=== PATIENT | female | born 1960 | race Caucasian/White ===

== ENCOUNTER → 2017-05-05 | Outpatient (CLI) | payer OTHER | END | disposition home or self-care (01) | LOC: CFH 10:19 | PROVIDERS: ATTEND Internal Medicine | DX: Z12.31 Encounter for screening mammogram for malignant neoplasm of breast (principal) | CPT/HCPCS: G0202 ==

== ENCOUNTER → 2020-11-22 | Outpatient (CLI) | payer OTHER | END | disposition home or self-care (01) | LOC: CFH 08:01 | PROVIDERS: ATTEND Internal Medicine | DX: Z12.31 Encounter for screening mammogram for malignant neoplasm of breast (principal) | CPT/HCPCS: 77063; 77067 ==

== ENCOUNTER → 2020-12-17 | Outpatient (CLI) | payer OTHER | END | disposition home or self-care (01) | LOC: CFH 10:32 | PROVIDERS: ATTEND Internal Medicine | DX: E78.00 Pure hypercholesterolemia, unspecified (principal); E78.41 Elevated Lipoprotein(a); Z82.49 Family history of ischemic heart disease and other diseases of the circulatory system | CPT/HCPCS: 75571 ==

== ENCOUNTER 2020-12-20 07:43 | Outpatient (CLI) | payer OTHER | END 2020-12-20 23:59 | disposition home or self-care (01) | LOC: CVU 07:43 | PROVIDERS: ATTEND Internal Medicine | DX: I65.23 Occlusion and stenosis of bilateral carotid arteries (principal); R09.89 Other specified symptoms and signs involving the circulatory and respiratory systems | CPT/HCPCS: 93306; 93880 ==

== ENCOUNTER 2021-03-03 10:10 | Inpatient (IN) | payer OTHER ==
[2021-02-28 10:18] LABS: BASOPHILS % (AUTO) 1 % (0-1); EOSINOPHILS % (AUTO) 2 % (1-7); LYMPHOCYTES % (AUTO) 34 % (22-44); MEAN CORPUSCULAR HEMOGLOBIN 28.6 pg (27.0-34.8); MEAN CORPUSCULAR HGB CONC 34.1 g/dL (32.4-35.8); MEAN PLATELET VOLUME 7.8 fL (7.4-10.4); MONOCYTES % (AUTO) 6 % (2-9); NEUTROPHILS % (AUTO) 58 % (42-75); PLATELET COUNT 306 x10^3/uL (130-400); RED BLOOD COUNT 4.88 x10^6/uL (3.82-5.3); RED CELL DISTRIBUTION WIDTH 13.9 % (9.6-15.2)
[2021-02-28 10:27] LABS: CHLORIDE 106 mmol/L (98-107)
[2021-02-28 10:37] LABS: ALANINE AMINOTRANSFERASE 28 U/L (12-78); ALBUMIN 3.9 g/dL (3.4-5.0); ALKALINE PHOSPHATASE 76 U/L (45-117); ANION GAP 5 mmol/L (5-15); BILIRUBIN,TOTAL 0.4 mg/dL (0.2-1.0); CALCIUM 9.3 mg/dL (8.5-10.1); CREATININE 0.68 mg/dL (0.55-1.02); TOTAL PROTEIN 7.7 g/dL (6.4-8.2)
[~2021-03-03] VITALS: Ht 167.6 cm; Wt 68.5 kg
[~2021-03-03 10:10] MED LIST: ASPI81TA45 PO; BUPIVACAINE/PF 0.5% ONE; CEFAZOLIN 1,000 MG ONE; CHOL10003 PO; EPINEPHRINE 1 MG/ML, 1ML ONE; GENTAMICIN 80 MG/2 ML ONE; HEPARIN 1,000 UNITS/ML, 10ML ONE; LACT1CAP13 PO; MULT-449 PO; OMEG-130 PO; PROTAMINE SULFATE 10 MG/ML, 25ML ONE; ROSU5TAB PO; Tumeric PO
[2021-03-03] MEDS ORDERED: CHLORHEXIDINE 15 ML UDC PO ONE (10:30)
[2021-03-03] MEDS ORDERED: LACTATED RINGERS 1,000 ML IV SCH (10:30)
[2021-03-03] MEDS ORDERED: CHLORHEXIDINE 15 ML UDC ONE (10:42)
[2021-03-03] MEDS ORDERED: FENTANYL PF 250 MCG/5ML ONE ×2 (12:38→14:34)
[2021-03-03] MEDS ORDERED: HYDR-2214 PO (12:57)
[2021-03-03] MEDS ORDERED: METHOCARBAMOL 1,000 MG in DEXTROSE 5% 100 ML IV PRN (15:30)
[2021-03-03] MEDS ORDERED: DIPHENHYDRAMINE 50 MG/ML, 1ML IVPush PRN (15:30)
[2021-03-03] MEDS ORDERED: FENTANYL PF 100 MCG/2ML IV PRN (15:30)
[2021-03-03] MEDS ORDERED: LABETALOL 5MG/ML, 20ML IV PRN (15:30)
[2021-03-03] MEDS ORDERED: PROMETHAZINE 25 MG/ML, 1ML IVPush PRN (15:30)
[2021-03-03] MEDS ORDERED: OXYcodone 5 MG/5 ML ORAL.SOL UDC PO PRN (15:30)
[2021-03-03] MEDS ORDERED: ONDANSETRON 2MG/ML, 2ML IVPush PRN (15:30)
[2021-03-03] MEDS ORDERED: HYDROmorphone 1 MG/ML, 1ML INJ IVPush PRN (15:30)
[2021-03-03] MEDS ORDERED: LORazepam 2 MG/ML, 1ML IVPush PRN (15:30)
[2021-03-03] MEDS ORDERED: ALBUTEROL SULFATE 2.5 MG/3 ML NPPB PRN (15:30)
[2021-03-03] MEDS ORDERED: MEPERIDINE/PF 25MG/0.5ML IVPush PRN (15:30)
[2021-03-03] MEDS ORDERED: MEPERIDINE/PF 25MG/ML,1ML ONE (17:02)
[2021-03-03] MEDS ORDERED: LACTATED RINGERS 1,000 ML IVBOLUS ONE (17:30)
[2021-03-03] MEDS ORDERED: OXYcodone 5 MG/5 ML ORAL.SOL UDC ONE (17:50)
[2021-03-03 19:15] VITALS: BP 97/63
[2021-03-03] MEDS ORDERED: ENOXAPARIN 40 MG/0.4 ML SQ SCH (20:30)
[2021-03-03] MEDS ORDERED: ACETAMINOPHEN 325 MG TABLET PO PRN (20:30)
[2021-03-03] MEDS ORDERED: ONDANSETRON 2MG/ML, 2ML IV PRN (20:30)
[2021-03-03] MEDS ORDERED: morphine SULFATE 10 MG/ML, 1ML IV PRN (20:30)
[2021-03-03] MEDS ORDERED: ATORVASTATIN 20 MG TABLET PO SCH (21:00)
[2021-03-03] MEDS: POTASSIUM CHLORIDE 20 MEQ in D5%-0.45% NACL 1,000 ML IV SCH (21:09)
[2021-03-03] MEDS: HYDROcodone/APAP 5/325 TABLET PO PRN (21:19)
[2021-03-04 00:30] VITALS: BP 101/63
[2021-03-04 02:44] VITALS: BP 108/68
[2021-03-04] MEDS ORDERED: ASPIRIN 81 MG TABLET EC PO SCH (06:00)
[2021-03-04] MEDS: POTASSIUM CHLORIDE 20 MEQ in D5%-0.45% NACL 1,000 ML IV SCH (06:36)
[2021-03-04] MEDS: HYDROcodone/APAP 5/325 TABLET PO PRN (06:57)
[2021-03-04] MEDS ORDERED: OMEGA HOMEMEDPO SCH (09:00)
[2021-03-04] MEDS ORDERED: CHOLECALCIFEROL 1,000 UNIT TABLET PO SCH (09:00)
[2021-03-04] MEDS ORDERED: LACTOBACILLUS CHEW TABLET PO SCH (09:00)
[2021-03-04] MEDS ORDERED: MULTIVITAMIN 1 TABLET PO SCH (09:00)
[2021-03-04] MEDS ORDERED: OIL HOMEMEDPO SCH (09:00)
[2021-03-04] MEDS ORDERED: [UNRECOGNIZED DRUG - OTHER] HOMEMEDPO SCH (09:00)
[2021-03-04] MEDS ORDERED: TUMERIC 500 MG HOMEMEDPO SCH (09:00)
[2021-03-04 10:13] VITALS: BP 132/70
[2021-03-04 11:03] LABS: BASOPHILS % (AUTO) 0 % (0-1); EOSINOPHILS % (AUTO) 1 % (1-7); LYMPHOCYTES % (AUTO) 21 % (22-44); MEAN CORPUSCULAR HEMOGLOBIN 28.7 pg (27.0-34.8); MEAN CORPUSCULAR HGB CONC 33.4 g/dL (32.4-35.8); MEAN PLATELET VOLUME 7.6 fL (7.4-10.4); MONOCYTES % (AUTO) 7 % (2-9); NEUTROPHILS % (AUTO) 72 % (42-75); PLATELET COUNT 233 x10^3/uL (130-400)
== END 2021-03-04 12:15 | disposition home or self-care (01) | DRG 39 ==
LOC: ORIP 10:10 → EDSTATUS 12:00 → 4NE 18:14
PROVIDERS: ADMIT Surgery; ATTEND Surgery
PROC: 03UL0KZ Supplement Left Internal Carotid Artery with Nonautologous Tissue Substitute, Open Approach (ICD-10-PCS; 2021-03-03)
PROC: 03CL0ZZ Extirpation of Matter from Left Internal Carotid Artery, Open Approach (ICD-10-PCS; principal; 2021-03-03 12:00)
DX: I65.22 Occlusion and stenosis of left carotid artery (principal); Z01.818 Encounter for other preprocedural examination; Z20.822 Contact with and (suspected) exposure to COVID-19
CPT/HCPCS: 36415; S0020; 80053; 85025; 86850; 86900; 88304; 88311; 93005; C1729; G0378; J0171; J0690; J1644; J1650; J2175; J2720; J3010; J3480; U0005; C1768; J1580; J7120; U0003